=== PATIENT | female | born 1965 ===

== ENCOUNTER 2020-10-26 10:03 | Outpatient (REF) | payer OTHER, SELFPAY ==
[2020-10-26 11:24] LABS: Hematocrit 43.4 % (37-47); Mean Corpuscular HGB Conc 32.3 g/dl (31.0-35.0); Mean Platelet Volume 10.8 fL (9.4-12.3); Platelet Count 236 X10*3/uL (160-400); Red Blood Count 4.82 X10*6/uL (4.20-5.50); Red Cell Distribution Width 12.6 % (11.0-16.0)
[2020-10-26 11:43] LABS: Glucose Urine UA NEG (NEG); Leukocyte Esterase Urine TRACE (NEG); Nitrite Urine NEG (NEG); PH 5.5 (5.0-8.0); Specific Gravity - Urine 1.025 (1.005-1.025); Urine Blood NEG (NEG); Urine Ketones NEG (NEG); Urine Protein NEG (NEG-TRACE)
[2020-10-26 11:47] LABS: Appearance Urine CLEAR; Color Urine YELLOW
[2020-10-26 11:55] LABS: Alanine Aminotransferase 28 U/L (0-31); Albumin Level 4.3 g/dL (3.5-5.0); Alkaline Phosphatase 80 U/L (39-117); Anion Gap 11 (12-20); Aspartate Amino Transferase 19 U/L (5-31); Bilirubin Total 0.4 mg/dL (0.0-1.0); Blood Urea Nitrogen 16 mg/dL (9-16); Calcium 10.2 mg/dL (8.4-10.2); Carbon Dioxide 27 mmol/L (22-29); Chloride 106 mmol/L (96-108); Cholesterol 274 mg/dL; Estimated Glomerular Filt Rate > 60; Glucose Fasting 99 mg/dL (60-99); HDL Cholesterol 75 mg/dL; LDL Cholesterol Calculated 180 mg/dl; Potassium 4.8 mmol/l (3.3-5.1); Sodium 139 mmol/L (135-145); Total Protein 6.8 g/dL (6.5-8.0); Triglycerides 95 mg/dL
[2020-10-26 12:04] LABS: Thyroid Stimulating Hormone 0.67 uIU/mL (0.32-4.0)
[2020-10-26 12:05] LABS: Bacteria Urine TRACE /LPF; RBC Urine 0-2 /HPF (0); Squamous Epithelial Cell Urine 1+ /LPF; WBC Urine 0-2 /HPF (0-4)
== END 2020-10-26 10:04 | disposition home or self-care (01) ==
LOC: HO.HMGCLDS 10:03
PROVIDERS: PCP Internal Medicine; Visit Provider Internal Medicine
DX: Z00.00 Encounter for general adult medical examination without abnormal findings (principal)
CPT/HCPCS: 36415; 80053; 80061; 81001; 84443; 85027

== ENCOUNTER 2020-10-26 12:15 | Outpatient (REF) | payer OTHER, SELFPAY | END 2020-10-26 12:16 | disposition home or self-care (01) | LOC: HO.LAB 12:15 | PROVIDERS: Visit Provider Internal Medicine | DX: Z12.4 Encounter for screening for malignant neoplasm of cervix (principal) | CPT/HCPCS: 88141; 88142 ==

== ENCOUNTER 2022-03-07 09:42 | Outpatient (REF) | payer OTHER, SELFPAY ==
[2022-03-07 11:53] LABS: Appearance Urine CLEAR; Color Urine YELLOW; Glucose Urine UA NEG (NEG); Leukocyte Esterase Urine NEG (NEG); Nitrite Urine NEG (NEG); Specific Gravity - Urine 1.025 (1.005-1.025); Urine Blood NEG (NEG); Urine Ketones NEG (NEG); Urine Protein NEG (NEG-TRACE)
[2022-03-07 11:56] LABS: Hematocrit 41.8 % (37.0-47.0); Hemoglobin 13.2 g/dl (12.0-16.0); Mean Corpuscular HGB Conc 31.6 g/dl (31.0-35.0); Mean Corpuscular Hemoglobin 28.8 pg (27.0-33.0); Mean Corpuscular Volume 91.1 fL (80.0-98.0); Mean Platelet Volume 11.7 fL (9.4-12.3); Platelet Count 245 X10*3/uL (160-400); Red Blood Count 4.59 X10*6/uL (4.20-5.50); Red Cell Distribution Width 12.8 % (11.0-16.0); White Blood Count 4.9 X10*3/uL (4.8-10.8)
[2022-03-07 12:03] LABS: Alanine Aminotransferase 30 U/L (0-31); Albumin Level 4.2 g/dL (3.5-5.0); Alkaline Phosphatase 69 U/L (39-117); Anion Gap 10 (12-20); Aspartate Amino Transferase 20 U/L (5-31); Bilirubin Total 0.6 mg/dL (0.0-1.0); Blood Urea Nitrogen 15 mg/dL (9-16); Calcium 10.4 mg/dL (8.4-10.2); Carbon Dioxide 27 mmol/L (22-29); Chloride 107 mmol/L (96-108); Cholesterol 280 mg/dL; Estimated Glomerular Filt Rate > 60; Glucose Fasting 100 mg/dL (60-99); HDL Cholesterol 66 mg/dL; LDL Cholesterol Calculated 198 mg/dl; Potassium 4.3 mmol/L (3.3-5.1); Sodium 140 mmol/L (135-145); Total Protein 6.5 g/dL (6.5-8.0); Triglycerides 81 mg/dL
[2022-03-07 12:09] LABS: TSH reflex Free T4 0.46 uIU/mL (0.32-4.0)
[2022-03-07 12:24] LABS: RBC Urine 0-2 /HPF (0); Renal Epithelial Cells Urine TRACE /LPF; Squamous Epithelial Cell Urine 1+ /LPF
[2022-03-07 12:25] LABS: WBC Urine 0-2 /HPF (0-4)
== END 2022-03-07 09:43 | disposition home or self-care (01) ==
LOC: HO.HMGCLDS 09:42
PROVIDERS: PCP Internal Medicine; Visit Provider Internal Medicine
DX: Z00.00 Encounter for general adult medical examination without abnormal findings (principal); K63.5 Polyp of colon
CPT/HCPCS: 36415; 80053; 80061; 81001; 84443; 85027

== ENCOUNTER 2023-08-31 12:53 | Outpatient (AMB) | payer OTHER, SELFPAY ==
--- NOTE | 2023-08-31 12:54 | MHC.PC.OV ---
Vital Signs 08/31/23 12:55 Height 5 ft 6 in Weight 208 lb BMI 33.6 BP 130/72 Blood Pressure Location Lt brachial Position Sitting Pulse 73 Pulse Source Pulse Oximeter Pulse Oximetry (%) 97 Oxygen Delivery Method Room Air Intake Visit Reasons: PE Intake Note: Pt is here today for PE. Pt states that she has colonoscopy scheduled for 09/18/23 Rad[facility]. Allergies No Known Allergies Allergy (Verified 08/31/23 12:59) Medication List - Last Reconciled 08/31/23 by Rohini Kerr MD No Known Home Meds Tobacco use date assessed: 08/31/23 Dental Screening Dental Screen Date: 08/31/23 Did you have a dental visit in the last 12 months?: No Did you have a dental problem in the last 6 months where you did not have access to dental care?: No Was dental information given to patient?: Patient declined HPI PE HPI Details Pt presents for PE PFS Medical History (Updated 08/31/23 @ 13:40 by Rohini Kerr MD) Normal pelvic exam Callus between toes Colon polyps Renal cyst Overweight Hyperlipidemia Sensorineural hearing loss Annual physical exam Surgical History H/O colonoscopy No pertinent past surgical history Family History Mother HTN (hypertension) Myocardial infarction Father Brain cancer Social History Housing: House Patient Tobacco Use Status: Never used Tobacco e-Cigarette/Vaping Use: Never Used Current occupational status: employed Cognitive needs: No Hearing needs: No Vision needs: No Questionnaire PHQ-9 Over the last 2 weeks, how often have you been bothered by any of the following problems? 1. Little interest or pleasure in doing things: not at all 2. Feeling down, depressed, or hopeless: not at all 3. Trouble falling or staying asleep, or sleeping too much: not at all 4. Feeling tired or having little energy: not at all 5. Poor appetite or overeating: not at all 6. Feeling bad about yourself - or that you are a failure or have let yourself or your family down: not at all 7. Trouble concentrating on things, such as reading the newspaper or watching television: not at all 8. Moving or speaking so slowly that other people could have noticed. Or the opposite - being so fidgety or restless that you have been moving around a lot more than usual: not at all 9. Thoughts that you would be better off or of hurting yourself in some way: not at all Total score: 0 Depression Screening Interpretation: Negative Depression Screening Done: Yes Source: Developed by Drs. William Mcguire, Mel Damon, Octavio Montoya and colleagues, with an educational patrick from [employer]. Thrive Questionnaire Date Thrive assessed: 08/31/23 I am a: Patient What is your living situation today?: I have a steady place to live Within the past 12 months, did the food you bought not last and you didn't have the money to get more?: Never true Within the past 12 months, did you worry whether your food would run out before you got money to buy more?: Never true Do you have trouble paying for medicines?: No Do you have trouble getting transportation to medical appointments?: No Do you have trouble paying your heating and electricity bill?: No Do you have trouble taking care of your child, family member or friend?: No Do you have trouble with day-to-day activities such as bathing, preparing meals, shopping, managing finances, etc.?: No Are you currently unemployed and looking for a job?: No Are you interested in more education?: No Please select the resources that you would like help with: None Currently or been in a relationship where the following occur: no concerns reported AUDIT C Alcohol Use Questionnaire (AUDIT-C) 1. How often do you have a drink containing alcohol?: Never 3. How often do you have six or more drinks on one occasion?: Never Total Score: 0 MAKAYLA-7 AMB Questionnaire MAKAYLA-7 Date MAKAYLA - 7 assessed: 08/31/23 Feeling nervous, anxious, or on edge: 0 = Not at all Not being able to stop or control worryin = Not at all Worrying too much about different things: 0 = Not at all Trouble relaxin = Not at all Being so restless that it is hard to sit still: 0 = Not at all Becoming easily annoyed or irritable: 0 = Not at all Feeling afraid as if something awful might happen: 0 = Not at all Total MAKAYLA-7 score (0-4 normal; 5-9 mild; 10-14 moderate; 15-21 severe): 0 Source: Developed by Drs. William Mcguire, Mel Damon, Octavio Montoya and colleagues, with an educational patrick from [employer]. Review of Systems Const All systems reviewed & are unremarkable except as noted in HPI and below Reports no additional complaints Eyes Reports no additional complaints ENT Reports no additional complaints Card Reports no additional complaints GI Reports no additional complaints Reports no additional complaints Musc Reports no additional complaints Physical exam (Primary Care) Vital Signs: Last Vital Signs Pulse 73 08/31/23 12:55 BP 130/72 08/31/23 12:55 Pulse Ox 97 08/31/23 12:55 Oxygen Delivery Method Room Air 08/31/23 12:55 BMI result Body Mass Index 33.6 Tobacco/Smoking Status: Tobacco use Status Tobacco use date assessed 08/31/23 08/31/23 13:02 Patient Tobacco Use Status Never used Tobacco 08/31/23 13:02 e-Cigarette/Vaping Use Never Used 08/31/23 12:59 PHQ-9: PHQ-9 Score PHQ-9: Total score 0 08/31/23 13:06 Depression Screening Interpretation: Negative Thrive Assessment: Date of Thrive Assessment Date Thrive assessed 08/31/23 08/31/23 13:02 Currently or been in a relationship where the following occur: no concerns reported Const General: no acute distress HENMT Ears: hearing grossly normal bilaterally Eyes General: appearance normal, both eyes and all related structures Neck Neck: Yes no lymphadenopathy and Yes supple Thyroid: diffusely enlarged Chest Breast/axilla inspection: normal inspection of the breasts and normal inspection of the axillae Breast/axilla palpation: normal palpation of the breasts and normal palpation of the axillae Resp Effort & Inspection: normal respiratory effort Auscultation: clear to auscultation bilaterally Cardio Rhythm: regular rhythm Heart sounds: S1 normal heart sound present and S2 normal heart sound present GI Inspection: Yes normal to inspection Palpation (GI): Soft to palpation Percussion: Yes normal to percussion Auscultation: normal bowel sounds External Female Exam: normal external appearance Speculum Exam - Vagina: normal appearance of the vagina Speculum Exam - Cervix: normal appearance of the cervix Bimanual exam- vagina & uterus: normal bimanual exam Assessment and Plan Assessment & Plan (1) Hyperlipidemia: Code(s): E78.5 - Hyperlipidemia, unspecified Plan: LOW-CHOLESTEROL DIET INCREASE PHYSICAL ACTIVITY WEIGHT LOSS DISCUSSED WITH THE PATIENT. SHE WILL TRY FISH OIL SUPPLEMENT AND WILL HAVE FASTING BLOOD WORK IN 3 MONTHS (2) Annual physical exam: Code(s): Z00.00 - Encounter for general adult medical examination without abnormal findings Plan: Well-balanced at ago exercise discussed with the patient Pap smear was done today. Patient is up-to-date with the mammogram. She will schedule colonoscopy at [facility] (3) Enlarged thyroid: Code(s): E04.9 - Nontoxic goiter, unspecified Plan: Obtain thyroid ultrasound to evaluate for nodules Orders: Orders Lipid Panel 3 Months E78.5 - Hyperlipidemia, unspecified, Z00.00 - Encounter for general adult medical examination without abnormal findings Comprehensive [place]. Panel Fast 3 Months E78.5 - Hyperlipidemia, unspecified, Z00.00 - Encounter for general adult medical examination without abnormal findings Complete Blood Count Auto Diff 3 Months E78.5 - Hyperlipidemia, unspecified, Z00.00 - Encounter for general adult medical examination without abnormal findings TSH reflex Free T4 3 Months E78.5 - Hyperlipidemia, unspecified, Z00.00 - Encounter for general adult medical examination without abnormal findings US thyroid Today E04.9 - Nontoxic goiter, unspecified Vitamin D 25-OH Total 3 Months E78.5 - Hyperlipidemia, unspecified, Z00.00 - Encounter for general adult medical examination without abnormal findings Pap Smear Today Z00.00 - Encounter for general adult medical examination without abnormal findings Referrals Gastroenterology Referral Z00.00 - Encounter for general adult medical examination without abnormal findings Coding Level of Care Code Est Pt Prev Care 40-64y(77805) Diagnoses Hyperlipidemia E78.5 Annual physical exam Z00.00 Enlarged thyroid E04.9
[2023-08-31 12:55] VITALS: BP 130/72; PULSE 73; O2SAT 97; BMI 33.6
== END 2023-08-31 13:50 | disposition home or self-care (01) ==
PROVIDERS: PCP Internal Medicine; Visit Provider Internal Medicine
DX: E78.5 Hyperlipidemia, unspecified (principal); Z00.00 Encounter for general adult medical examination without abnormal findings; E04.9 Nontoxic goiter, unspecified
CPT/HCPCS: 99396

== ENCOUNTER 2023-08-31 13:43 | Outpatient (REF) | payer OTHER, SELFPAY ==
[2023-09-05 18:18] LABS: HPV mRNA E6/E7 Not Detected (Not Detected)
== END 2023-08-31 13:44 | disposition home or self-care (01) ==
LOC: HO.LNP 13:43
PROVIDERS: Visit Provider Internal Medicine
DX: Z12.4 Encounter for screening for malignant neoplasm of cervix (principal); Z11.51 Encounter for screening for human papillomavirus (HPV)
CPT/HCPCS: 87624; 88142

== ENCOUNTER 2024-09-19 13:01 | Outpatient (REF) | payer OTHER, SELFPAY ==
[2024-09-19 18:13] LABS: Bacterial Vaginosis PCR NEGATIVE (Negative); Candida Group PCR NOT DETECTED (Not Detect); Candida glab krusei PCR NOT DETECTED (Not Detect); Trichomonas vaginalis PCR NOT DETECTED (Not Detect)
== END 2024-09-19 13:02 | disposition home or self-care (01) ==
LOC: HO.LAB 13:01
PROVIDERS: PCP Internal Medicine; Visit Provider Internal Medicine
DX: Z00.00 Encounter for general adult medical examination without abnormal findings (principal); K63.5 Polyp of colon; N81.4 Uterovaginal prolapse, unspecified; E78.5 Hyperlipidemia, unspecified
CPT/HCPCS: 0352U; 96127

== ENCOUNTER 2024-09-19 13:01 | Outpatient (AMB) | payer OTHER, SELFPAY ==
[2024-09-19 13:05] VITALS: BP 132/76; PULSE 57; O2SAT 99; BMI 33.1
--- NOTE | 2024-09-19 13:05 | MHC.PC.OV ---
Vital Signs 09/19/24 13:05 Height 5 ft 6 in Weight 205 lb BMI 33.1 BP 132/76 Blood Pressure Location Lt brachial Position Sitting Pulse 57 Pulse Source Pulse Oximeter Pulse Oximetry (%) 99 Oxygen Delivery Method Room Air Intake Visit Reasons: Annual PE Intake Note: Pt is here today for PE. Allergies No Known Allergies Allergy (Verified 09/19/24 13:07) Medication List - Last Reconciled 09/19/24 by Rohini Kerr MD No Known Home Meds Tobacco use date assessed: 09/19/24 Dental Screening Dental Screen Date: 09/19/24 Did you have a dental visit in the last 12 months?: No Did you have a dental problem in the last 6 months where you did not have access to dental care?: No Was dental information given to patient?: Patient declined HPI Annual PE HPI Details Patient presents for PE. [facility] Medical History (Updated 09/19/24 @ 13:57 by Rohini Kerr MD) Normal pelvic exam Callus between toes Colon polyps Renal cyst Overweight Hyperlipidemia Sensorineural hearing loss Annual physical exam Surgical History H/O colonoscopy No pertinent past surgical history Family History Mother HTN (hypertension) Myocardial infarction Father Brain cancer Social History Housing: House Patient Tobacco Use Status: Never used Tobacco e-Cigarette/Vaping Use: Never Used service: No Current occupational status: employed Cognitive needs: No Hearing needs: No Vision needs: No Questionnaire PHQ-9 Over the last 2 weeks, how often have you been bothered by any of the following problems? 1. Little interest or pleasure in doing things: not at all 2. Feeling down, depressed, or hopeless: not at all 3. Trouble falling or staying asleep, or sleeping too much: not at all 4. Feeling tired or having little energy: not at all 5. Poor appetite or overeating: not at all 6. Feeling bad about yourself - or that you are a failure or have let yourself or your family down: not at all 7. Trouble concentrating on things, such as reading the newspaper or watching television: not at all 8. Moving or speaking so slowly that other people could have noticed. Or the opposite - being so fidgety or restless that you have been moving around a lot more than usual: not at all 9. Thoughts that you would be better off or of hurting yourself in some way: not at all Total score: 0 Depression Screening Interpretation: Negative Depression Screening Done: Yes 50226 - PHQ-9 Billing: Yes Source: Developed by Drs. William Mcguire, Mel Damon, Octavio Montoya and colleagues, with an educational patrick from [employer]. Thrive Questionnaire Date Thrive assessed: 09/19/24 I am a: Patient What is your living situation today?: I have a steady place to live Within the past 12 months, did the food you bought not last and you didn't have the money to get more?: I choose not to answer this question Within the past 12 months, did you worry whether your food would run out before you got money to buy more?: I choose not to answer this question Do you have trouble paying for medicines?: I choose not to answer this question Do you have trouble getting transportation to medical appointments?: I choose not to answer this question Do you have trouble paying your heating and electricity bill?: I choose not to answer this question Do you have trouble taking care of your child, family member or friend?: I choose not to answer this question Do you have trouble with day-to-day activities such as bathing, preparing meals, shopping, managing finances, etc.?: I choose not to answer this question Are you currently unemployed and looking for a job?: I choose not to answer this question Are you interested in more education?: I choose not to answer this question Please select the resources that you would like help with: None Currently or been in a relationship where the following occur: I choose not to answer THRIVE Score: 0 AUDIT C Alcohol Use Questionnaire (AUDIT-C) 1. How often do you have a drink containing alcohol?: Never 3. How often do you have six or more drinks on one occasion?: Never Total Score: 0 MAKAYLA-7 AMB Questionnaire MAKAYLA-7 Date MAKAYLA - 7 assessed: 09/19/24 Feeling nervous, anxious, or on edge: 0 = Not at all Not being able to stop or control worryin = Not at all Worrying too much about different things: 0 = Not at all Trouble relaxin = Not at all Being so restless that it is hard to sit still: 0 = Not at all Becoming easily annoyed or irritable: 0 = Not at all Feeling afraid as if something awful might happen: 0 = Not at all Total MAKAYLA-7 score (0-4 normal; 5-9 mild; 10-14 moderate; 15-21 severe): 0 Source: Developed by Drs. William Mcguire, Mel Damon, Octavio Montoya and colleagues, with an educational patrick from [employer]. MAKAYLA-7 Assessment Billing MAKAYLA-7 Assessment Tool: MAKAYLA-7 Assessment 45782 Review of Systems Const All systems reviewed & are unremarkable except as noted in HPI and below Eyes Reports no additional complaints ENT Reports no additional complaints Card Reports no additional complaints Resp Reports no additional complaints GI Reports no additional complaints Reports no additional complaints Physical exam (Primary Care) Vital Signs: Last Vital Signs Pulse 57 09/19/24 13:05 BP 132/76 09/19/24 13:05 Pulse Ox 99 09/19/24 13:05 Oxygen Delivery Method Room Air 09/19/24 13:05 BMI result Body Mass Index 33.1 Tobacco/Smoking Status: Tobacco use Status Tobacco use date assessed 09/19/24 09/19/24 13:11 Patient Tobacco Use Status Never used Tobacco 09/19/24 13:11 e-Cigarette/Vaping Use Never Used 09/19/24 13:11 PHQ-9: PHQ-9 Score PHQ-9: Total score 0 09/19/24 13:12 Depression Screening Interpretation: Negative Thrive Assessment: Date of Thrive Assessment Date Thrive assessed 09/19/24 09/19/24 13:12 Currently or been in a relationship where the following occur: I choose not to answer Const General: no acute distress HENMT Head: Yes normal to inspection Ears: hearing grossly normal bilaterally Face and sinus: Yes normal facial exam Mouth: Normal oral and palatal mucosa present Throat: Yes posterior oropharynx normal Eyes General: appearance normal, both eyes and all related structures Neck Neck: Yes no lymphadenopathy and Yes supple Resp Effort & Inspection: normal respiratory effort Auscultation: clear to auscultation bilaterally Cardio Rhythm: regular rhythm Heart sounds: S1 normal heart sound present and S2 normal heart sound present GI Inspection: Yes normal to inspection Palpation (GI): Soft to palpation Percussion: Yes normal to percussion Auscultation: normal bowel sounds Other: Uterus prolapsed External Female Exam: normal external appearance Speculum Exam - Cervix: normal appearance of the cervix Coding Level of Care Code Est Pt Prev Care 40-64y(34793) Diagnoses Annual physical exam Z00.00 Colon polyps K63.5 Hyperlipidemia E78.5 Uterine prolapse N81.4 Additional Codes MAKAYLA-7 Assessment Billing - MAKAYLA-7 Assessment Tool: MAKAYLA-7 Assessment 90934 ([id number]) PHQ-9 - 16179 - PHQ-9 Billing: Yes ([id number]) Assessment & Plan Assessment & Plan (1) Annual physical exam: Code(s): Z00.00 - Encounter for general adult medical examination without abnormal findings Category: Medical Plan: Well-balanced diet regular physical activity weight loss discussed with the patient. She is up-to-date with mammogram colonoscopy. Patient will have fasting blood work at [facility]. She declined taking medications for hyperlipidemia (2) Colon polyps: Comment: 08/[address] Fontaine , repeated 09/2024 in 5 yrs Code(s): K63.5 - Polyp of colon Category: Medical Plan: Follow-up with GI (3) Hyperlipidemia: Comment: Patient declined statin Code(s): E78.5 - Hyperlipidemia, unspecified Category: Medical Plan: Low-cholesterol diet increase exercise weight loss discussed with the patient (4) Uterine prolapse: Code(s): N81.4 - Uterovaginal prolapse, unspecified Category: Medical Plan: Pap smear was done patient will be referred to urogynecologist for uterine prolapse Orders: Orders Comprehensive [place]. Panel Fast Today E78.5 - Hyperlipidemia, unspecified, K63.5 - Polyp of colon, Z00.00 - Encounter for general adult medical examination without abnormal findings Lipid Panel Today E78.5 - Hyperlipidemia, unspecified, K63.5 - Polyp of colon, Z00.00 - Encounter for general adult medical examination without abnormal findings Complete Blood Count Auto Diff Today E78.5 - Hyperlipidemia, unspecified, K63.5 - Polyp of colon, Z00.00 - Encounter for general adult medical examination without abnormal findings TSH reflex Free T4 Today E78.5 - Hyperlipidemia, unspecified, K63.5 - Polyp of colon, Z00.00 - Encounter for general adult medical examination without abnormal findings Pap Smear Today Z00.00 - Encounter for general adult medical examination without abnormal findings Vitamin D 25-OH Total Today E78.5 - Hyperlipidemia, unspecified, K63.5 - Polyp of colon, Z00.00 - Encounter for general adult medical examination without abnormal findings UA w Microscopic Today E78.5 - Hyperlipidemia, unspecified, K63.5 - Polyp of colon, Z00.00 - Encounter for general adult medical examination without abnormal findings Bacterial Vaginosis Panel Today Z00.00 - Encounter for general adult medical examination without abnormal findings Referrals Urogynecology Referral N81.4 - Uterovaginal prolapse, unspecified
== END 2024-09-19 13:57 | disposition home or self-care (01) ==
PROVIDERS: PCP Internal Medicine; Visit Provider Internal Medicine
DX: Z00.00 Encounter for general adult medical examination without abnormal findings (principal); K63.5 Polyp of colon; E78.5 Hyperlipidemia, unspecified; N81.4 Uterovaginal prolapse, unspecified

== ENCOUNTER 2024-09-19 13:45 | Outpatient (REF) | payer OTHER, SELFPAY ==
[2024-09-20 10:37] LABS: HPV 16,18/45 See PAP report
== END 2024-09-19 13:46 | disposition home or self-care (01) ==
LOC: HO.LNP 13:45
PROVIDERS: Visit Provider Internal Medicine
DX: Z00.00 Encounter for general adult medical examination without abnormal findings (principal)
CPT/HCPCS: 87624; 88175